=== PATIENT | female | born 1960 | race Caucasian/White ===

== ENCOUNTER 2016-12-28 14:07 | Inpatient (IN) | payer MEDICARE ==
[2016-12-28] VITALS (9 sets, daily range): BP systolic 150–238; BP diastolic 92–124; PULSE 69–96; RESP 12–20; TEMP 98.5; O2SAT 97–100
[~2016-12-28] VITALS: Ht 160 cm; Wt 47.6 kg
[~2016-12-28 14:07] MED LIST: 1-ME1LIQ PO; CLON-481 PO; LISI-363 PO
[2016-12-28] MEDS ORDERED: ONDANSETRON HCL 4 MG/2 ML VIAL IVP ONE (15:15)
[2016-12-28] MEDS ORDERED: SODIUM CHLORIDE 0.9% FLUSH 10 ML FLUSH IVF PRN (15:15)
[2016-12-28] MEDS ORDERED: METOCLOPRAMIDE HCL 10 MG/2 ML VIAL IVP ONE (15:15)
[2016-12-28] MEDS ORDERED: LABETALOL HCL 100 MG/20 ML VIAL IV PUSH ONE ×2 (15:45→17:30)
--- NOTE | 2016-12-28 15:45 | RADRPT ---
EXAM DATE/TIME: 12/28/2016 15:31 [facility] COMPARISON: No previous studies available for comparison. INDICATIONS : Visual changes, hypertension and headache. RADIATION DOSE: 56.35 CTDIvol (mGy) MEDICAL HISTORY : Hypertension. SURGICAL HISTORY : None. ENCOUNTER: Initial ACUITY: 1 day PAIN SCALE: 6/10 LOCATION: cranial TECHNIQUE: Multiple contiguous axial images were obtained of the head. Using automated exposure control and adj ustment of the mA and/or kV according to patient size, radiation dose was kept as low as reasonably a chievable to obtain optimal diagnostic quality images. FINDINGS: CEREBRUM: The ventricles are normal for age. No evidence of midline shift, mass lesion, hemorrhage or acute in farction. No extra-axial fluid collections are seen. POSTERIOR FOSSA: The cerebellum and brainstem are intact. The 4th ventricle is midline. The cerebellopontine angle i s unremarkable. EXTRACRANIAL: The visualized portion of the orbits is intact. There is a mucous retention cyst within right maxilla ry sinus. Nasal septal deviation to the left is noted. SKULL: The calvaria is intact. No evidence of skull fracture. CONCLUSION: No acute intracranial abnormality. Mucous retention cyst within the right maxillary s inus. Nasal septal deviation to the left. Pranav Segundo MD on December 28, 2016 at 15:41 Board Certified Radiologist. This report was verified electronically.
[2016-12-28 16:04] LABS: AUTOMATED NEUTROPHIL # 11.2 TH/MM3 (1.8-7.7); BASOPHIL # 0.1 TH/MM3 (0-0.2); BASOPHIL % 0.4 % (0.0-2.0); EOSINOPHIL % 0.2 % (0.0-4.0); HEMATOCRIT 45.7 % (35.0-46.0); HEMO FLAGS DIFF FINAL; LYMPH % 16.9 % (9.0-44.0); LYMPHOCYTE # 2.5 TH/MM3 (1.0-4.8); MEAN CORPUSCULAR HEMOGLOBIN 32.9 PG (27.0-34.0); MEAN CORPUSCULAR HGB CONC 34.3 % (32.0-36.0); MONO % 5.5 % (0.0-8.0); PLATELET COUNT 320 TH/MM3 (150-450); RED BLOOD COUNT 4.77 MIL/MM3 (4.00-5.30); RED CELL DISTRIBUTION WIDTH 13.9 % (11.6-17.2); WHITE BLOOD COUNT 14.6 TH/MM3 (4.0-11.0)
[2016-12-28 16:20] LABS: ANION GAP 7 MEQ/L (5-15); AST (GOT) 26 U/L (15-37); BLOOD UREA NITROGEN 9 MG/DL (7-18); CHLORIDE 108 MEQ/L (98-107); GLOMERULAR FILTRATION RATE 80 ML/MIN (>89); POTASSIUM 3.5 MEQ/L (3.5-5.1); SODIUM (NA) 142 MEQ/L (136-145)
[2016-12-28 16:21] LABS: APTT (PATIENT) 25.9 SEC (24.3-30.1); PROTHROMBIN TIME - PATIENT 10.7 SEC (9.8-11.6)
[2016-12-28 16:25] LABS: ALKALINE PHOSPHATASE 121 U/L (45-117); ALT (GPT) 34 U/L (10-53); CREATINE KINASE 220 U/L (26-192); TOTAL BILIRUBIN ADULT 0.2 MG/DL (0.2-1.0)
--- NOTE | 2016-12-28 16:36 | PD ---
HPI Chief Complaint: Hypertension Time Seen by Provider: 15:01 Travel History International Travel<30 days: No Contact w/Intl Traveler<30days: No Traveled to known affect area: No History of Present Illness HPI This is a 56-year-old female with history of hypertension, who presents today with points of headache and elevated blood pressure. The patient states she's been off her medications for several days. She states she normally takes clonidine 0.6 mg twice daily. She states her doctor recently decreased her dose from 0.6 2.3 twice a day. She also takes Norvasc 5 mg daily as well as lisinopril 20 mg daily. She denies any weakness of her extremity is. She denies any blurry vision. She denies any nausea vomiting diarrhea. PFSH Past Medical History Hypertension: Yes Tetanus Vaccination: > 5 Years Influenza Vaccination: No ?: Not Social History Alcohol Use: Yes (occasionally ) Tobacco Use: Yes Substance Use: No Allergies-Medications (Allergen,Severity, Reaction): Coded Allergies: No Known Allergies (Unverified , 04/20/16) Reported Meds & Prescriptions Reported Meds & Active Scripts Active Lisinopril 20 mg (Lisinopril) 20 Mg Tab 1 Tab PO BID Amlodipine Besylate 10 mg (Amlodipine Besylate) 10 Mg Tab 1 Tab PO DAILY Catapres 0.3 mg (Clonidine HCl) 0.3 Mg Tab 1 Tab PO BID Physical Exam Narrative GENERAL: Well developed well-nourished female in no acute respiratory distress. SKIN: Warm and dry. HEAD: Atraumatic. Normocephalic. EYES: Pupils equal and round. No scleral icterus. No injection or drainage. ENT: No nasal bleeding or discharge. Mucous membranes pink and moist. NECK: Trachea midline. Supple. The patient has puncture deras in her left lateral neck that are consistent with her reported IVD injection site. There is no evidence of cellulitis or infection. CARDIOVASCULAR: Regular rate and rhythm. No murmur appreciated. RESPIRATORY: No accessory muscle use. Clear to auscultation. Breath sounds equal bilaterally. GASTROINTESTINAL: Abdomen soft, non-tender, nondistended. MUSCULOSKELETAL: No obvious deformities. No clubbing. No cyanosis. No edema. NEUROLOGICAL: Awake and alert. No obvious cranial nerve deficits. Motor grossly within normal limits. Normal speech. PSYCHIATRIC: Appropriate mood and affect; insight and judgment normal. Data Data Last Documented VS Vital Signs Date Time Temp Pulse Resp B/P Pulse Ox O2 Delivery O2 Flow Rate FiO2 12/28/16 18:00 69 20 196/102 97 Room Air 12/28/16 14:08 98.5 Orders Electrocardiogram (12/28/16 ) Complete Blood Count With Diff (12/28/16 15:08) Comprehensive Metabolic Panel (12/28/16 15:08) Prothrombin Time / Inr (Pt) (12/28/16 15:08) Act Partial Throm Time (Ptt) (12/28/16 15:08) Ct Brain W/O Iv Contrast(Rout) (12/28/16 15:08) Ecg Monitoring (12/28/16 15:08) Iv Access Insert/Monitor (12/28/16 15:08) Oximetry (12/28/16 15:08) Sodium Chloride 0.9% Flush (Ns Flush) (12/28/16 15:15) Ondansetron Inj (Zofran Inj) (12/28/16 15:15) Metoclopramide Inj (Reglan Inj) (12/28/16 15:15) Ckmb (Isoenzyme) Profile (12/28/16 15:08) Troponin I (12/28/16 15:08) Labetalol Inj (Trandate Inj) (12/28/16 15:45) CKMB (12/28/16 15:10) CKMB% (12/28/16 15:10) Hydromorphone Pf Inj (Dilaudid Pf Inj) (12/28/16 17:15) Labetalol Inj (Trandate Inj) (12/28/16 17:30) Enalaprilat Inj (Vasotec Inj) (12/28/16 17:30) Nitroprusside Inj (Nipride Inj) (12/28/16 18:30) Chest, Single Ap (12/28/16 18:26) Admit Order (Ed Use Only) (12/28/16 19:03) Labs Laboratory Tests Test 12/28/16 15:10 White Blood Count 14.6 TH/MM3 Red Blood Count 4.77 MIL/MM3 Hemoglobin 15.7 GM/DL Hematocrit 45.7 % Mean Corpuscular Volume 96.0 FL Mean Corpuscular Hemoglobin 32.9 PG Mean Corpuscular Hemoglobin 34.3 % Concent Red Cell Distribution Width 13.9 % Platelet Count 320 TH/MM3 Mean Platelet Volume 9.0 FL Neutrophils (%) (Auto) 77.0 % Lymphocytes (%) (Auto) 16.9 % Monocytes (%) (Auto) 5.5 % Eosinophils (%) (Auto) 0.2 % Basophils (%) (Auto) 0.4 % Neutrophils # (Auto) 11.2 TH/MM3 Lymphocytes # (Auto) 2.5 TH/MM3 Monocytes # (Auto) 0.8 TH/MM3 Eosinophils # (Auto) 0.0 TH/MM3 Basophils # (Auto) 0.1 TH/MM3 CBC Comment DIFF FINAL Differential Comment Prothrombin Time 10.7 SEC Prothromb Time International 1.0 RATIO Ratio Activated Partial 25.9 SEC Thromboplast Time Sodium Level 142 MEQ/L Potassium Level 3.5 MEQ/L Chloride Level 108 MEQ/L Carbon Dioxide Level 27.0 MEQ/L Anion Gap 7 MEQ/L Blood Urea Nitrogen 9 MG/DL Creatinine 0.75 MG/DL Estimat Glomerular Filtration 80 ML/MIN Rate Random Glucose 114 MG/DL Calcium Level 9.1 MG/DL Total Bilirubin 0.2 MG/DL Aspartate Amino Transf 26 U/L (AST/SGOT) Alanine Aminotransferase 34 U/L (ALT/SGPT) Alkaline Phosphatase 121 U/L Total Creatine Kinase 220 U/L Creatine Kinase MB 6.1 NG/ML Creatine Kinase MB % 2.8 % Troponin I LESS THAN 0.02 NG/ML Total Protein 8.0 GM/DL Albumin 3.6 GM/DL MDM Medical Decision Making Medical Screen Exam Complete: Yes Emergency Medical Condition: Yes Interpretation(s) Last [address] 12/28/16 1508 Signed Impressions: Service Date/Time: Wednesday, December 28, 2016 15:31 - CONCLUSION: No acute intracranial abnormality. Mucous retention cyst within the right maxillary sinus. Nasal septal deviation to the left. Pranav Segundo MD Differential Diagnosis Hypertensive urgency versus hypertensive emergency versus uncontrolled hypertension Narrative Course This is a 56-year-old female with a history of hypertension who is recently moved down here from [facility] today with complaints of uncontrolled hypertension and headache. The patient has no focal neurologic signs. CT scan of the brain shows no evidence of acute intracranial been on these. The patient has been given 2 doses of IV Lopressor and 1 dose of IV Vasotec. The patient's blood pressure is still 190/110. She'll be started on a Cardene drip per Dr. Matos. There is a call out to the [facility] for admission for uncontrolled hypertension/apprehensive urgency. Diagnosis Primary Impression: Hypertensive urgency Aniket Rodriguez MD Dec 28, 2016 16:35
[2016-12-28 16:37] LABS: CKMB 6.1 NG/ML (0.5-3.6)
[2016-12-28] MEDS ORDERED: HYDROmorphone HCL PF 1 MG/ML VIAL IV PUSH ONE (17:15)
[2016-12-28] MEDS ORDERED: ENALAPRILAT 1.25 MG/ML VIAL IV PUSH ONE (17:30)
[2016-12-28] MEDS ORDERED: NITROPRUSSIDE INJ 50 MG in DEXTROSE 5% IN WATER INJ 250 ML IV ONE ×2 (18:30)
--- NOTE | 2016-12-28 19:02 | RADRPT ---
EXAM DATE/TIME: 12/28/2016 18:47 [facility] COMPARISON: No previous studies available for comparison. INDICATIONS : Uncontrolled hypertension. MEDICAL HISTORY : Hypertension. SURGICAL HISTORY : None. ENCOUNTER: Initial ACUITY: 1 day PAIN SCORE: 0/10 LOCATION: Bilateral chest FINDINGS: The lungs are clear without infiltrate, nodule, or mass. There is no appreciable pleural effusion fo r technique. Heart and mediastinum are unremarkable. CONCLUSION: No acute cardiopulmonary disease. Maisha Aguirre MD on December 28, 2016 at 19:00 Board Certified Radiologist. This report was verified electronically.
[2016-12-28] MEDS ORDERED: SODIUM CHLORIDE 0.9% FLUSH 10 ML FLUSH IV FLUSH PRN (19:30)
[2016-12-28] MEDS ORDERED: MISCELLANEOUS NURSING INFORMATION XX SCH (19:30)
[2016-12-28] MEDS ORDERED: RESP: ALBUTEROL 2.5 MG/IPRATROPIUM 0.5 MG NEB (PRN) INH (19:30)
[2016-12-28] MEDS ORDERED: ONDANSETRON HCL 4 MG/2 ML VIAL IV PRN (19:30)
[2016-12-28] MEDS ORDERED: CHLORHEXIDINE GLUCONATE 2 % 1 PACK (2 CLOTHS) TOP PRN (19:30)
[2016-12-28] MEDS ORDERED: METOCLOPRAMIDE HCL 10 MG/2 ML VIAL IV PRN (19:30)
--- NOTE | 2016-12-28 19:39 | HHI.HP ---
HPI Service Critical Care Medicine Primary Care Physician No Primary Care Physician Admission Diagnosis hypertensive urgency, Diagnosis: Travel History International Travel<30 Days: No Contact w/Intl Traveler <30 Da: No Traveled to Known Affected Are: No History of Present Illness 56-year-old female with a history of hypertension recently moved here from [place], she was on clonidine 0.6 twice a day. Patient wasn't able to establish primary care physician yet and she ran out of her blood pressure medications. She presents with uncontrolled hypertension. Review of Systems Constitutional: DENIES: Diaphoretic episodes, Fatigue, Fever, Weight gain, Weight loss, Chills, Dizziness, Change in appetite, Night Sweats Endocrine: DENIES: Abnorml menstrual pattern, Heat/cold intolerance, Polydipsia , Polyuria, Polyphagia Eyes: DENIES: Blurred vision, Diplopia, Eye inflammation, Eye pain, Vision loss , Photosensitivity, Double Vision Ears, nose, mouth, throat: DENIES: Tinnitus, Hearing loss, Vertigo, Nasal discharge, Oral lesions, Throat pain, Hoarseness, Ear Pain, Running Nose, Epistaxis, Sinus Pain, Toothache, Odynophagia Respiratory: DENIES: Apneas, Cough, Snoring, Wheezing, Hemoptysis, Sputum production, Shortness of breath Cardiovascular: DENIES: Chest pain, Palpitations, Syncope, Dyspnea on Exertion , PND, Lower Extremity Edema, Orthopnea, Claudication Gastrointestinal: COMPLAINS OF: Nausea, DENIES: Abdominal pain, Black stools, Bloody stools, Constipation, Diarrhea, Vomiting, Difficulty Swallowing, Anorexia Genitourinary: DENIES: Abnormal vaginal bleeding, Dysmenorrhea, Dyspareunia, Sexual dysfunction, Urinary frequency, Urinary incontinence, Urgency, Hematuria , Dysuria, Nocturia, Vaginal discharge Musculoskeletal: DENIES: Joint pain, Muscle aches, Stiffness, Joint Swelling, Back pain, Neck pain Integumentary: DENIES: Abnormal pigmentation, Pruritus, Rash, Nail changes, Breast masses, Breast skin changes, Nipple discharge Hematologic/lymphatic: DENIES: Bruising, Lymphadenopathy Immunologic/allergic: DENIES: Eczema, Urticaria Neurologic: COMPLAINS OF: Headache, DENIES: Abnormal gait, Localized weakness , Paresthesias, Seizures, Speech Problems, Tremor, Poor Balance Psychiatric: DENIES: Anxiety, Confusion, Mood changes, Depression, Hallucinations, Agitation, Suicidal Ideation, Homicidal Ideation, Delusions Past Family Social History Allergies: Coded Allergies: No Known Allergies (Unverified , 04/20/16) Past Medical History Hypertension Past Surgical History None Reported Medications Reported Meds & Active Scripts Active Lisinopril 20 mg (Lisinopril) 20 Mg Tab 1 Tab PO BID Amlodipine Besylate 10 mg (Amlodipine Besylate) 10 Mg Tab 1 Tab PO DAILY Catapres 0.3 mg (Clonidine HCl) 0.3 Mg Tab 1 Tab PO BID Active Ordered Medications Current Medications Medications (Trade) Dose Ordered Sig/Georgette Route PRN Reason Start Time Stop Time Status Last Admin Dose Admin Sodium Chloride (NS Flush) 2 ml UNSCH PRN IV FLUSH FLUSH AFTER USING IV ACCESS 12/28/16 19:30 Sodium Chloride (NS Flush) 2 ml BID IV FLUSH 12/28/16 21:00 Acetaminophen (Tylenol) 650 mg Q6H PRN PO PAIN 1-10 AND/OR FEVER >101F 12/28/16 19:30 12/28/16 20:36 Ondansetron HCl (Zofran Inj) 4 mg Q6H PRN IV NAUSEA OR VOMITING 12/28/16 19:30 Metoclopramide HCl (Reglan Inj) 10 mg Q6H PRN IV NAUSEA OR VOMITING 12/28/16 19:30 Docusate Sodium (Colace) 100 mg BID PO 12/28/16 21:00 12/28/16 20:59 Zolpidem Tartrate (Ambien) 5 mg HS PRN PO INSOMNIA 12/28/16 21:00 Miscellaneous Information 1 Q361D XX 12/28/16 19:30 12/28/16 19:57 Chlorhexidine Gluconate (Chlorhexidine 2% Cloth) 3 pack Taper DAILY@04 TOP 12/29/16 04:00 12/25/17 03:59 Chlorhexidine Gluconate 3 pack 3 pack UNSCH PRN TOP HYGIENIC CARE 12/28/16 19:30 Nicardipine HCl/ Sodium Chloride (Cardene Inj/NS 250 ml Inj) 260 ml @ 0 mls/hr TITRATE IV 12/28/16 21:00 12/28/16 21:54 Hydralazine HCl (Apresoline Inj) 20 mg Q4H PRN IV PUSH SBP>160, DBP>90 12/28/16 19:45 Clonidine (Catapres) 0.3 mg BID PO 12/28/16 21:00 12/28/16 21:03 Lisinopril (Prinivil) 20 mg BID PO 12/28/16 21:00 12/28/16 21:00 Labetalol HCl (Trandate) 200 mg Q12HR PO 12/28/16 21:00 12/28/16 22:48 Amlodipine Besylate (Norvasc) 10 mg DAILY PO 12/28/16 19:45 12/28/16 19:58 Family History Noncontributory Social History Positive for tobacco use Alcohol occasionally Negative illicit drug abuse, occasionally marijuana Physical Exam Vital Signs Vital Signs Date Time Temp Pulse Resp B/P Pulse Ox O2 Delivery O2 Flow Rate FiO2 12/28/16 18:00 69 20 196/102 97 Room Air 12/28/16 17:57 18 12/28/16 17:30 80 20 191/104 98 Room Air 12/28/16 17:00 70 20 197/115 99 Room Air 12/28/16 15:37 98 Room Air 12/28/16 15:30 75 20 177/101 99 Room Air 12/28/16 15:04 88 20 98 Room Air 12/28/16 14:08 98.5 96 20 238/124 99 Room Air Physical Exam GENERAL: Well-nourished, well-developed patient. SKIN: Warm and dry. HEAD: Normocephalic. EYES: No scleral icterus. No injection or drainage. NECK: Supple, trachea midline. No JVD or lymphadenopathy. CARDIOVASCULAR: Regular rate and rhythm without murmurs, gallops, or rubs. RESPIRATORY: Breath sounds equal bilaterally. No accessory muscle use. GASTROINTESTINAL: Abdomen soft, non-tender, nondistended. MUSCULOSKELETAL: No cyanosis, or edema. BACK: Nontender without obvious deformity. No CVA tenderness. EXTREMITIES: Nonfocal, no clubbing, no cyanosis, no edema Laboratory Laboratory Tests Test 12/28/16 15:10 White Blood Count 14.6 Red Blood Count 4.77 Hemoglobin 15.7 Hematocrit 45.7 Mean Corpuscular Volume 96.0 Mean Corpuscular Hemoglobin 32.9 Mean Corpuscular Hemoglobin 34.3 Concent Red Cell Distribution Width 13.9 Platelet Count 320 Mean Platelet Volume 9.0 Neutrophils (%) (Auto) 77.0 Lymphocytes (%) (Auto) 16.9 Monocytes (%) (Auto) 5.5 Eosinophils (%) (Auto) 0.2 Basophils (%) (Auto) 0.4 Neutrophils # (Auto) 11.2 Lymphocytes # (Auto) 2.5 Monocytes # (Auto) 0.8 Eosinophils # (Auto) 0.0 Basophils # (Auto) 0.1 CBC Comment DIFF FINAL Differential Comment Prothrombin Time 10.7 Prothromb Time International 1.0 Ratio Activated Partial 25.9 Thromboplast Time Sodium Level 142 Potassium Level 3.5 Chloride Level 108 Carbon Dioxide Level 27.0 Anion Gap 7 Blood Urea Nitrogen 9 Creatinine 0.75 Estimat Glomerular Filtration 80 Rate Random Glucose 114 Calcium Level 9.1 Total Bilirubin 0.2 Aspartate Amino Transf 26 (AST/SGOT) Alanine Aminotransferase 34 (ALT/SGPT) Alkaline Phosphatase 121 Total Creatine Kinase 220 Creatine Kinase MB 6.1 Creatine Kinase MB % 2.8 Troponin I LESS THAN 0.02 Total Protein 8.0 Albumin 3.6 Result Diagram: 12/28/16 1510 12/28/16 1510 Imaging Last 24 hours Impressions Chest X-Ray 12/28/16 1826 Signed Impressions: Service Date/Time: Wednesday, December 28, 2016 18:47 - CONCLUSION: No acute cardiopulmonary disease. Maisha Aguirre MD Head CT 12/28/16 1508 Signed Impressions: Service Date/Time: Wednesday, December 28, 2016 15:31 - CONCLUSION: No acute intracranial abnormality. Mucous retention cyst within the right maxillary sinus. Nasal septal deviation to the left. Pranav Segundo MD Assessment and Plan Assessment and Plan Hypertensive urgency - Cardene drip - Clonidine - Norvasc - Lisinopril - Labetalol Headaches - CT is negative - Due to uncontrolled hypertension - Tylenol as needed Tobacco use disorder - Counseling provided - Consider nicotine patch if symptoms of withdrawal DVT GI prophylaxis - Early aggressive mobilization - Heart healthy diet Critical Care: The total critical care time was 35 minutes. Time to perform other separately billable procedures was not included in the critical care time. Rudy Matos MD Dec 28, 2016 19:39
[2016-12-28] MEDS ORDERED: hydrALAZINE HCL 20 MG/ML VIAL IV PUSH PRN (19:45)
[2016-12-28] MEDS: SODIUM CHLORIDE 0.9% FLUSH 10 ML FLUSH IV FLUSH SCH (19:57)
[2016-12-28] MEDS: ACETAMINOPHEN 325 MG TAB PO PRN (20:36)
[2016-12-28] MEDS: DOCUSATE SODIUM 100 MG CAP PO SCH (20:59)
[2016-12-28] MEDS: LISINOPRIL 20 MG TAB PO SCH (21:00)
[2016-12-28] MEDS: cloNIDine HCL 0.3 MG TAB PO SCH (21:03)
[2016-12-28] MEDS: niCARdipine INJ 25 MG in SODIUM CHLOR 0.9% 250 ML INJ 250 ML IV SCH (21:54)
[2016-12-28 22:05] LABS: AMPHETAMINE, URINE NEG (NEG); BARBITURATES, URINE NEG (NEG); COCAINE, URINE NEG (NEG)
[2016-12-28] MEDS: LABETALOL HCL 200 MG TAB PO SCH (22:48)
[2016-12-29] VITALS (12 sets, daily range): BP systolic 102–179; BP diastolic 58–93; PULSE 62–98; RESP 16–24; TEMP 98.2–98.7; O2SAT 96–98
[2016-12-29] MEDS ORDERED: IBUPROFEN 600 MG TAB PO ONE (01:45)
[2016-12-29] MEDS: ACETAMINOPHEN 325 MG TAB PO PRN ×3 (02:44→17:05)
[2016-12-29] MEDS: ZOLPIDEM TARTRATE 5 MG TAB PO PRN ×2 (02:47→21:07)
[2016-12-29] MEDS: CHLORHEXIDINE GLUCONATE 2 % 1 PACK (2 CLOTHS) TOP SCH (03:36)
[2016-12-29] MEDS: niCARdipine INJ 25 MG in SODIUM CHLOR 0.9% 250 ML INJ 250 ML IV SCH ×2 (03:36→08:08)
[2016-12-29 04:19] LABS: AUTOMATED NEUTROPHIL # 10.8 TH/MM3 (1.8-7.7); BASOPHIL # 0.1 TH/MM3 (0-0.2); BASOPHIL % 0.5 % (0.0-2.0); EOSINOPHIL # 0.2 TH/MM3 (0-0.4); EOSINOPHIL % 1.3 % (0.0-4.0); HEMATOCRIT 45.8 % (35.0-46.0); HEMO FLAGS DIFF FINAL; LYMPH % 25.3 % (9.0-44.0); LYMPHOCYTE # 4.2 TH/MM3 (1.0-4.8); MEAN CELL VOLUME 95.8 FL (80.0-100.0); MEAN CORPUSCULAR HEMOGLOBIN 31.8 PG (27.0-34.0); MEAN CORPUSCULAR HGB CONC 33.2 % (32.0-36.0); MONO % 7.8 % (0.0-8.0); NEUT % 65.1 % (16.0-70.0); PLATELET COUNT 327 TH/MM3 (150-450); RED BLOOD COUNT 4.78 MIL/MM3 (4.00-5.30); RED CELL DISTRIBUTION WIDTH 13.9 % (11.6-17.2); WHITE BLOOD COUNT 16.7 TH/MM3 (4.0-11.0)
[2016-12-29 04:37] LABS: ALT (GPT) 33 U/L (10-53); ANION GAP 7 MEQ/L (5-15); AST (GOT) 20 U/L (15-37); BICARBONATE 30.6 MEQ/L (21.0-32.0); BLOOD UREA NITROGEN 9 MG/DL (7-18); CHLORIDE 105 MEQ/L (98-107); GLOMERULAR FILTRATION RATE 74 ML/MIN (>89); MAGNESIUM 1.9 MG/DL (1.5-2.5); POTASSIUM 3.9 MEQ/L (3.5-5.1); SODIUM (NA) 143 MEQ/L (136-145)
[2016-12-29 04:39] LABS: ALKALINE PHOSPHATASE 117 U/L (45-117); TOTAL BILIRUBIN ADULT 0.3 MG/DL (0.2-1.0)
[2016-12-29] MEDS: SODIUM CHLORIDE 0.9% FLUSH 10 ML FLUSH IV FLUSH SCH ×2 (07:49→21:00)
[2016-12-29] MEDS: DOCUSATE SODIUM 100 MG CAP PO SCH ×2 (08:07→21:00)
[2016-12-29] MEDS: LISINOPRIL 20 MG TAB PO SCH ×2 (08:07→21:08)
[2016-12-29] MEDS: LABETALOL HCL 200 MG TAB PO SCH ×2 (08:07→21:08)
[2016-12-29] MEDS: cloNIDine HCL 0.3 MG TAB PO SCH ×2 (08:07→21:08)
[2016-12-29] MEDS ORDERED: METHYL PO SCH (09:00)
[2016-12-29] MEDS: SODIUM CHLORID 0.9% 500 ML INJ 500 ML IV SCH ×2 (09:25→10:00)
--- NOTE | 2016-12-29 10:45 | HHI.PR ---
Subjective Remarks Follow-up hypertensive emergency/urgency 12/29/16-patient seen and examined; patient continued to complain of headaches. Currently hypotensive secondary to medication side effect. Receiving NS bolus 500 cc Objective Vitals Vital Signs Date Time Temp Pulse Resp B/P Pulse Ox O2 Delivery O2 Flow Rate FiO2 12/29/16 06:00 92 12/29/16 04:00 98 12/29/16 04:00 98.2 98 24 143/80 98 12/29/16 03:44 20 12/29/16 02:48 15 12/29/16 02:00 89 12/29/16 00:00 98.5 89 17 152/86 97 12/29/16 00:00 89 12/28/16 23:42 170/95 12/28/16 22:30 76 12/28/16 22:30 97 Room Air 12/28/16 22:30 98.5 80 16 150/100 100 12/28/16 20:03 75 12 203/92 97 12/28/16 18:00 69 20 196/102 97 Room Air 12/28/16 17:57 18 12/28/16 17:30 80 20 191/104 98 Room Air 12/28/16 17:00 70 20 197/115 99 Room Air 12/28/16 15:37 98 Room Air 12/28/16 15:30 75 20 177/101 99 Room Air 12/28/16 15:04 88 20 98 Room Air 12/28/16 14:08 98.5 96 20 238/124 99 Room Air I/O 12/28/16 12/28/16 12/28/16 12/29/16 12/29/16 12/29/16 07:00 15:00 23:00 07:00 15:00 23:00 Intake Total 731 ml Balance 731 ml Intake Oral 480 ml IV Total 251 ml # Voids 4 Result Diagram: 12/29/16 0332 12/29/16 0332 Imaging Last Impressions Chest X-Ray 12/28/16 1826 Signed Impressions: Service Date/Time: Wednesday, December 28, 2016 18:47 - CONCLUSION: No acute cardiopulmonary disease. Maisha Augirre MD Head CT 12/28/16 1508 Signed Impressions: Service Date/Time: Wednesday, December 28, 2016 15:31 - CONCLUSION: No acute intracranial abnormality. Mucous retention cyst within the right maxillary sinus. Nasal septal deviation to the left. Pranav Segundo MD Objective Remarks GENERAL: NAD SKIN: Warm and dry. HEAD: Normocephalic. EYES: No scleral icterus. No injection or drainage. NECK: Supple, trachea midline. No JVD or lymphadenopathy. CARDIOVASCULAR: Regular rate and rhythm without murmurs, gallops, or rubs. RESPIRATORY: Breath sounds equal bilaterally. No accessory muscle use. GASTROINTESTINAL: Abdomen soft, non-tender, nondistended. MUSCULOSKELETAL: No cyanosis, or edema. BACK: Nontender without obvious deformity. No CVA tenderness. A/P Problem List: (1) Hypertensive urgency ICD Code: I16.0 Status: Acute (2) Headache ICD Code: R51 Status: Acute (3) Benign hypertension ICD Code: I10 Status: Acute (4) Hypotension due to medication ICD Code: I95.2 Status: Acute Assessment and Plan 56-year-old female with Hypertensive urgency: Initially on Cardene drip despite oral antihypertensive medication including Norvasc 10 mg daily, Prinivil 20 mg twice a day, clonidine 0.3 mg twice a day and Trandate 200 mg twice a day. However now patient hypotensive Hypotension due to medication: Hold all oral hypertensive medications and discontinue Cardene.NS Bolus 500cc and Repeat x 1 Headaches: Head CT noted and review without intracranial abnormality, ibuprofen when necessary PSA: UDS positive for cannabinoid, patient counseled against Leukocytosis:may stress reactive; check UA and treat accordingly. Chest x-ray noted and review without any cardio pulmonary disease DVT prophylaxis : bilateral SCDs We will transfer to Med/Surg when BP improves Neil Cortes MD Dec 29, 2016 10:45
--- NOTE | 2016-12-29 11:05 | EKG ---
Date Performed: 12/28/2016 Time Performed: 14:30:51 PTAGE: 56 years EKG: Sinus rhythm WITH SINUS ARRHYTHMIA POSSIBLE LEFT ATRIAL ENLARGEMENT POSSIBLE LEFT VENTRICULAR HYPERTROPHY ABNORMA L ECG NO PREVIOUS TRACING DOCTOR: Wayne Camp Interpretating Date/Time 12/29/2016 11:03:35
[2016-12-29] MEDS: IBUPROFEN 600 MG TAB PO PRN ×2 (11:59→21:08)
[2016-12-29 20:19] LABS: BACTERIA, URINE RARE /hpf; BLOOD, URINE NEG (NEG); CALCIUM OXALATE CRYSTALS,URINE FEW /hpf; COMMENT (UR) CULTURE INDICATED; CULTURE IF INDICATED CULTURE INDICATED; GLUCOSE,URINE NEG (NEG); KETONE, URINE NEG (NEG); MUCUS URINE FEW /lpf (OCC); NITRITE,URINE POS (NEG); PH, URINE 5.5 (5.0-8.5); SQUAMOUS EPITHELIAL CELL URINE 7 /hpf (0-5); URINE COLOR YELLOW (YELLW/STRAW)
[2016-12-30 03:38] VITALS: BP 138/78; PULSE 66; RESP 16; TEMP 98.3; O2SAT 98
[2016-12-30] MEDS: CHLORHEXIDINE GLUCONATE 2 % 1 PACK (2 CLOTHS) TOP SCH (04:00)
[2016-12-30] MEDS: ACETAMINOPHEN 325 MG TAB PO PRN (04:07)
[2016-12-30] MEDS: LABETALOL HCL 200 MG TAB PO SCH (08:10)
[2016-12-30] MEDS: DOCUSATE SODIUM 100 MG CAP PO SCH (08:10)
[2016-12-30] MEDS: cloNIDine HCL 0.3 MG TAB PO SCH (08:10)
[2016-12-30] MEDS: SODIUM CHLORIDE 0.9% FLUSH 10 ML FLUSH IV FLUSH SCH (08:11)
[2016-12-30] MEDS ORDERED: LABE200T2 PO (08:31)
[2016-12-30] MEDS ORDERED: CIPR-9 PO (08:31)
[2016-12-30] MEDS ORDERED: CLON-481 PO (08:31)
--- NOTE | 2016-12-30 08:37 | HHI.PR ---
Subjective Remarks Follow-up hypertensive emergency/urgency 12/29/16-patient seen and examined; patient continued to complain of headaches. Currently hypotensive secondary to medication side effect. Receiving NS bolus 500 cc 12/30/16-patient seen and examined, BP stable, and denies any headaches. She was started on by mouth Cipro this morning. No acute event overnight Objective Vitals Vital Signs Date Time Temp Pulse Resp B/P Pulse Ox O2 Delivery O2 Flow Rate FiO2 12/30/16 03:38 98.3 66 16 138/78 98 12/29/16 23:18 98.6 74 18 124/63 97 12/29/16 21:20 98.7 69 18 179/93 97 12/29/16 20:00 78 12/29/16 20:00 Room Air 12/29/16 16:08 98.3 75 18 125/72 98 12/29/16 14:00 79 12/29/16 12:00 98.4 71 16 102/58 96 12/29/16 12:00 71 12/29/16 10:00 62 I/O 12/29/16 12/29/16 12/29/16 12/30/16 12/30/16 12/30/16 07:00 15:00 23:00 07:00 15:00 23:00 Intake Total 731 ml 1605 ml 240 ml 240 ml Output Total 0 ml Balance 731 ml 1605 ml 240 ml 240 ml Intake Oral 480 ml 420 ml 240 ml 240 ml IV Total 251 ml 1185 ml Output Urine Total 0 ml # Voids 4 2 4 1 # Bowel Movements 0 0 0 Result Diagram: 12/29/16 0332 12/29/16 0332 Imaging Last Impressions Chest X-Ray 12/28/16 1826 Signed Impressions: Service Date/Time: Wednesday, December 28, 2016 18:47 - CONCLUSION: No acute cardiopulmonary disease. Maisha Aguirre MD Head CT 12/28/16 1508 Signed Impressions: Service Date/Time: Wednesday, December 28, 2016 15:31 - CONCLUSION: No acute intracranial abnormality. Mucous retention cyst within the right maxillary sinus. Nasal septal deviation to the left. Pranav Segundo MD Objective Remarks GENERAL: NAD SKIN: Warm and dry. HEAD: Normocephalic. EYES: No scleral icterus. No injection or drainage. NECK: Supple, trachea midline. No JVD or lymphadenopathy. CARDIOVASCULAR: Regular rate and rhythm without murmurs, gallops, or rubs. RESPIRATORY: Breath sounds equal bilaterally. No accessory muscle use. GASTROINTESTINAL: Abdomen soft, non-tender, nondistended. MUSCULOSKELETAL: No cyanosis, or edema. BACK: Nontender without obvious deformity. No CVA tenderness. Procedures none A/P Problem List: (1) Hypertensive urgency ICD Code: I16.0 Status: Resolved (2) Headache ICD Code: R51 Status: Resolved (3) Benign hypertension ICD Code: I10 Status: Chronic (4) Hypotension due to medication ICD Code: I95.2 Status: Resolved (5) UTI (urinary tract infection) ICD Code: N39.0 Status: Acute Assessment and Plan 56-year-old female with Hypertensive urgency: Resolved s/p Cardene drip as well as oral antihypertensive medication including Norvasc 10 mg daily, Prinivil 20 mg twice a day, clonidine 0.3 mg twice a day and Trandate 200 mg twice a day. Hypotension due to medication: Resolved s/p NS Bolus 1L Hypertension: Now on Clonidine 0.3mg PO BID and Trandate 200mg BID Headaches: Head CT noted and review without intracranial abnormality, ibuprofen when necessary PSA: UDS positive for cannabinoid, patient counseled against UTI: Start Cipro 500mg BID DVT prophylaxis : bilateral SCDs Neil Cortes MD Dec 30, 2016 08:37
--- NOTE | 2016-12-30 08:38 | HHI.DS ---
Discharge Summary Admission Date Dec 28, 2016 at 19:05 Discharge Date: Dec 30, 2016 Admitting Diagnosis hypertensive urgency, (1) Hypertensive urgency ICD Code: I16.0 (2) Headache ICD Code: R51 (3) Benign hypertension ICD Code: I10 (4) Hypotension due to medication ICD Code: I95.2 (5) UTI (urinary tract infection) ICD Code: N39.0 Procedures none Brief History - From Admission 56-year-old female with a history of hypertension recently moved here from [place], she was on clonidine 0.6 twice a day. Patient wasn't able to establish primary care physician yet and she ran out of her blood pressure medications. She presents with uncontrolled hypertension. CBC/BMP: 12/29/16 0332 12/29/16 0332 Significant Findings Laboratory Tests Test 12/28/16 12/28/16 12/29/16 12/29/16 15:10 21:10 03:32 20:00 White Blood Count 14.6 TH/MM3 16.7 TH/MM3 (4.0-11.0) (4.0-11.0) Hemoglobin 15.7 GM/DL (11.6-15.3) Neutrophils (%) (Auto) 77.0 % (16.0-70.0) Neutrophils # (Auto) 11.2 TH/MM3 10.8 TH/MM3 (1.8-7.7) (1.8-7.7) Chloride Level 108 MEQ/L (98-107) Estimat Glomerular Filtration 80 ML/MIN (>89) 74 ML/MIN (>89) Rate Random Glucose 114 MG/DL (74-106) Alkaline Phosphatase 121 U/L (45-117) Total Creatine Kinase 220 U/L (26-192) Creatine Kinase MB 6.1 NG/ML (0.5-3.6) Troponin I LESS THAN 0.02 NG/ML (0.02-0.05) Urine Cannabinoids Screen POS (NEG) Monocytes # (Auto) 1.3 TH/MM3 (0-0.9) Urine Turbidity HAZY (CLEAR) Urine Nitrite POS (NEG) Urine Leukocyte Esterase MOD (NEG) Urine Calcium Oxalate Crystals FEW /hpf (NONE) Urine Bacteria RARE /hpf (NONE) Urine Mucus FEW /lpf (OCC) Imaging Last Impressions Chest X-Ray 12/28/16 1826 Signed Impressions: Service Date/Time: Wednesday, December 28, 2016 18:47 - CONCLUSION: No acute cardiopulmonary disease. Maisha Aguirre MD Head CT 12/28/16 1508 Signed Impressions: Service Date/Time: Wednesday, December 28, 2016 15:31 - CONCLUSION: No acute intracranial abnormality. Mucous retention cyst within the right maxillary sinus. Nasal septal deviation to the left. Pranav Segundo MD PE at Discharge GENERAL: NAD SKIN: Warm and dry. HEAD: Normocephalic. EYES: No scleral icterus. No injection or drainage. NECK: Supple, trachea midline. No JVD or lymphadenopathy. CARDIOVASCULAR: Regular rate and rhythm without murmurs, gallops, or rubs. RESPIRATORY: Breath sounds equal bilaterally. No accessory muscle use. GASTROINTESTINAL: Abdomen soft, non-tender, nondistended. MUSCULOSKELETAL: No cyanosis, or edema. BACK: Nontender without obvious deformity. No CVA tenderness. Hospital Course Hypertensive urgency: Resolved s/p Cardene drip as well as oral antihypertensive medication including Norvasc 10 mg daily, Prinivil 20 mg twice a day, clonidine 0.3 mg twice a day and Trandate 200 mg twice a day. Hypotension due to medication: Resolved s/p NS Bolus 1L Hypertension: Now on Clonidine 0.3mg PO BID and Trandate 200mg BID Headaches: Head CT noted and review without intracranial abnormality, ibuprofen when necessary PSA: UDS positive for cannabinoid, patient counseled against UTI: Start Cipro 500mg BID DVT prophylaxis : bilateral SCDs Pt Condition on Discharge: Stable Discharge Disposition: Discharge Home Discharge Time: <= 30 minutes Discharge Instructions DIET: Follow Instructions for: Heart Healthy Diet Activities you can perform: Regular-No Restrictions Follow up Referrals: PCP Follow-up - 1 Week New Medications: Ciprofloxacin (Cipro) 500 Mg Tab 500 MG PO Q12HR Infection #10 TAB Clonidine (Catapres) 0.3 Mg Tab 0.3 MG PO BID Blood Pressure Management #60 Ref 7 TAB Labetalol (Labetalol) 200 Mg Tab 200 MG PO Q12HR Blood Pressure Management #60 Ref 7 TAB Continued Medications: 1-Methyl 2-Pyrrolidone (Bulk) (1-Methyl 2-Pyrrolidinone) 10 Mg Tab 1 TAB PO DAILY #30 TAB Discontinued Medications: Lisinopril 20 mg (Lisinopril 20 mg) 20 Mg Tab 1 TAB PO BID #60 TAB Neil Cortes MD Dec 30, 2016 08:37
[2016-12-30] MEDS ORDERED: CIPROFLOXACIN 500 MG TAB PO SCH (09:00)
== END 2016-12-30 10:11 | disposition home or self-care (01) | DRG 305 ==
LOC: NEPE 14:07 → NEDA 19:05 → N03B 23:29 → N04B 12-29 14:50
PROVIDERS: ADMIT Hospitalist; ATTEND Hospitalist
DX: I16.0 Hypertensive urgency (principal); N39.0 Urinary tract infection, site not specified; F17.210 Nicotine dependence, cigarettes, uncomplicated; I95.2 Hypotension due to drugs; T46.1X5A Adverse effect of calcium-channel blockers, initial encounter; Y92.230 Patient room in hospital as the place of occurrence of the external cause; G47.00 Insomnia, unspecified; I10 Essential (primary) hypertension
CPT/HCPCS: 70450; 71010; 80053; 80307; 81001; 82550; 82552; 83735; 84100; 84484; 85025; 85610; 85730; 87077; 87086; 87186; 87641; 93005; 96365; 96375; 96376; J1170; J2405; J2765; J7040; J7050; J7060

== ENCOUNTER 2017-01-29 07:21 | Inpatient (IN) | payer OTHER, MEDICARE ==
[~2017-01-29] VITALS: Ht 160 cm; Wt 50.0 kg
[2017-01-29] VITALS (14 sets, daily range): BP systolic 146–237; BP diastolic 88–125; PULSE 59–84; RESP 18–20; TEMP 97.6–98.5; O2SAT 96–100
[~2017-01-29 07:21] MED LIST changes: +CIPR-9 PO; +LABE200T2 PO; -LISI-363 PO
[2017-01-29] MEDS ORDERED: CLON0.3T PO (07:39)
[2017-01-29] MEDS ORDERED: LABE200T2 PO (07:39)
[2017-01-29] MEDS ORDERED: METOPROLOL TARTRATE 25 MG TAB PO ONE (07:45)
[2017-01-29] MEDS ORDERED: SODIUM CHLORIDE 0.9% FLUSH 10 ML FLUSH IVF PRN (07:45)
--- NOTE | 2017-01-29 07:50 | PD ---
HPI Chief Complaint: Hypertension Time Seen by Provider: 07:41 Travel History International Travel<30 days: No Contact w/Intl Traveler<30days: No Traveled to known affect area: No History of Present Illness HPI 56-year-old female with history of hypertension, ran out of her blood pressure medications 2 days ago, and states that she is having substernal chest discomfort which she rates at a 3 out of 10, with radiation down the right arm, headaches, and elevated blood pressures. She states that she thinks her blood pressure is elevated testes are the same symptoms she usually gets. She does not yet have a primary care physician. She denies any nausea, vomiting, fevers , stiff neck, or any other symptoms. Modifying Factors: None Associated Signs & Symptoms: Chest discomfort, headaches, elevated blood pressure Risk Factors: History of hypertension, ran out of blood pressure meds PFSH Past Medical History Cardiovascular Problems: Yes Diabetes: No Hypertension: Yes Tetanus Vaccination: < 5 Years Influenza Vaccination: No ?: Not Menopausal: Yes Social History Alcohol Use: Yes (occasionally ) Tobacco Use: Yes Substance Use: No Allergies-Medications (Allergen,Severity, Reaction): Coded Allergies: No Known Allergies (Unverified , 01/29/17) Reported Meds & Prescriptions Reported Meds & Active Scripts Active Reported Labetalol (Labetalol HCl) 200 Mg Tab 200 Mg PO BID Clonidine (Clonidine HCl) 0.3 Mg Tab 0.3 Mg PO BID Review of Systems Except as stated in HPI: all other systems reviewed are Neg Physical Exam Narrative GENERAL: Middle age white female patient currently not in acute distress. Well- developed, awake, alert, oriented 3. SKIN: Focused skin assessment warm/dry. HEAD: Atraumatic. Normocephalic. EYES: Pupils equal and round. No scleral icterus. No injection or drainage. ENT: No nasal bleeding or discharge. Mucous membranes pink and moist. NECK: Trachea midline. No JVD. CARDIOVASCULAR: Regular rate and rhythm. No murmur appreciated. Pulses are present and equal bilaterally. RESPIRATORY: No accessory muscle use. Clear to auscultation. Breath sounds equal bilaterally. GASTROINTESTINAL: Abdomen soft, non-tender, nondistended. Hepatic and splenic margins not palpable. MUSCULOSKELETAL: No obvious deformities. No clubbing. No cyanosis. No edema. NEUROLOGICAL: Awake and alert. No obvious cranial nerve deficits. Motor grossly within normal limits. Normal speech. PSYCHIATRIC: Appropriate mood and affect; insight and judgment normal. Data Data Last Documented VS Vital Signs Date Time Temp Pulse Resp B/P Pulse Ox O2 Delivery O2 Flow Rate FiO2 01/29/17 10:04 59 18 154/105 99 Room Air 01/29/17 07:24 98.5 Orders Electrocardiogram (01/29/17 07:41) B-Type Natriuretic Peptide (01/29/17 07:41) Ckmb (Isoenzyme) Profile (01/29/17 07:41) Complete Blood Count With Diff (01/29/17 07:41) Comprehensive Metabolic Panel (01/29/17 07:41) Troponin I (01/29/17 07:41) Chest, Single Ap (01/29/17 07:41) Ecg Monitoring (01/29/17 07:41) Bilateral Bp Monitoring (01/29/17 07:41) Iv Access Insert/Monitor (01/29/17 07:41) Oximetry (01/29/17 07:41) Oxygen Administration (01/29/17 07:41) Sodium Chloride 0.9% Flush (Ns Flush) (01/29/17 07:45) Metoprolol Tartrate (Lopressor) (01/29/17 07:45) Aspirin (Aspirin) (01/29/17 08:30) Clonidine (Catapres) (01/29/17 08:30) Nitroglycerin 2% Oint (Nitroglycerin 2% (01/29/17 08:30) CKMB (01/29/17 07:50) CKMB% (01/29/17 07:50) Admit Order (Ed Use Only) (01/29/17 10:18) Labs Laboratory Tests Test 01/29/17 07:50 White Blood Count 18.4 TH/MM3 Red Blood Count 4.93 MIL/MM3 Hemoglobin 15.6 GM/DL Hematocrit 47.5 % Mean Corpuscular Volume 96.3 FL Mean Corpuscular Hemoglobin 31.6 PG Mean Corpuscular Hemoglobin 32.8 % Concent Red Cell Distribution Width 13.9 % Platelet Count 309 TH/MM3 Mean Platelet Volume 8.9 FL Neutrophils (%) (Auto) 71.0 % Lymphocytes (%) (Auto) 20.9 % Monocytes (%) (Auto) 7.3 % Eosinophils (%) (Auto) 0.2 % Basophils (%) (Auto) 0.6 % Neutrophils # (Auto) 13.1 TH/MM3 Lymphocytes # (Auto) 3.8 TH/MM3 Monocytes # (Auto) 1.3 TH/MM3 Eosinophils # (Auto) 0.0 TH/MM3 Basophils # (Auto) 0.1 TH/MM3 CBC Comment DIFF FINAL Differential Comment Sodium Level 142 MEQ/L Potassium Level 3.9 MEQ/L Chloride Level 106 MEQ/L Carbon Dioxide Level 27.3 MEQ/L Anion Gap 9 MEQ/L Blood Urea Nitrogen 10 MG/DL Creatinine 0.76 MG/DL Estimat Glomerular Filtration 78 ML/MIN Rate Random Glucose 92 MG/DL Calcium Level 9.4 MG/DL Total Bilirubin 0.5 MG/DL Aspartate Amino Transf 27 U/L (AST/SGOT) Alanine Aminotransferase 29 U/L (ALT/SGPT) Alkaline Phosphatase 126 U/L Total Creatine Kinase 112 U/L Creatine Kinase MB 1.6 NG/ML Troponin I LESS THAN 0.02 NG/ML B-Type Natriuretic Peptide 134 PG/ML Total Protein 8.6 GM/DL Albumin 4.0 GM/DL MDM Medical Decision Making Medical Screen Exam Complete: Yes Emergency Medical Condition: Yes Medical Record Reviewed: Yes Interpretation(s) EKG shows NSR, no ST elevation or depression, and no arrhythmias. No significant T-wave inversions. Laboratory Tests Test 01/29/17 07:50 White Blood Count 18.4 TH/MM3 (4.0-11.0) Hemoglobin 15.6 GM/DL (11.6-15.3) Hematocrit 47.5 % (35.0-46.0) Neutrophils (%) (Auto) 71.0 % (16.0-70.0) Neutrophils # (Auto) 13.1 TH/MM3 (1.8-7.7) Monocytes # (Auto) 1.3 TH/MM3 (0-0.9) Estimat Glomerular Filtration 78 ML/MIN (>89) Rate Alkaline Phosphatase 126 U/L (45-117) Troponin I LESS THAN 0.02 NG/ML (0.02-0.05) B-Type Natriuretic Peptide 134 PG/ML (0-100) Total Protein 8.6 GM/DL (6.4-8.2) Last 24 hours Impressions Chest X-Ray 01/29/17 0741 Signed Impressions: Service Date/Time: Sunday, January 29, 2017 07:55 - CONCLUSION: No acute disease. Zac Araiza MD Differential Diagnosis Chest discomfort, headaches, elevated blood pressurehypertensive urgency versus ACS versus CHF versus anxiety Narrative Course Blood pressures were fairly elevated in the ER and patient was given metoprolol without significant improvement. She was then given aspirin and nitroglycerin along with clotted 9 for her blood pressures. Her blood pressures came down slightly to a systolic of 190. At this point, lab work returns showing significant metabolic issues. Cardiac enzymes negative. EKG did not show any signs of acute ST-T changes. My plan would be to admit the patient for further treatment of chest pains and hypertensive urgency. The case was discussed with Dr. Castañeda for admission. Diagnosis Primary Impression: Hypertensive urgency Additional Impression: Chest pain Admitting Information Admitting Physician Requests: it Rika Morillo MD Jan 29, 2017 07:50
--- NOTE | 2017-01-29 08:14 | RADRPT ---
EXAM DATE/TIME: 01/29/2017 07:55 [facility] COMPARISON: CHEST SINGLE AP, December 28, 2016, 18:47. INDICATIONS : Chest pain, shortness of breath, and elevated blood pressure. MEDICAL HISTORY : Hypertension. SURGICAL HISTORY : None. ENCOUNTER: Initial ACUITY: 2 days PAIN SCORE: 3/10 LOCATION: Bilateral chest FINDINGS: A single view of the chest demonstrates the lungs to be symmetrically aerated without evidence of mas s, infiltrate or effusion. The cardiomediastinal contours are unremarkable. Osseous structures are intact. CONCLUSION: No acute disease. Zac Araiza MD on January 29, 2017 at 8:11 Board Certified Radiologist. This report was verified electronically.
[2017-01-29] MEDS ORDERED: NITROGLYCERIN 2% OINT 1 GM PACKET TOPICAL ONE (08:30)
[2017-01-29] MEDS ORDERED: cloNIDine HCL 0.2 MG TAB PO ONE (08:30)
[2017-01-29] MEDS ORDERED: ASPIRIN 325 MG TAB PO ONE (08:30)
[2017-01-29 08:56] LABS: AUTOMATED NEUTROPHIL # 13.1 TH/MM3 (1.8-7.7); BASOPHIL # 0.1 TH/MM3 (0-0.2); BASOPHIL % 0.6 % (0.0-2.0); EOSINOPHIL % 0.2 % (0.0-4.0); HEMATOCRIT 47.5 % (35.0-46.0); HEMO FLAGS DIFF FINAL; LYMPH % 20.9 % (9.0-44.0); LYMPHOCYTE # 3.8 TH/MM3 (1.0-4.8); MEAN CELL VOLUME 96.3 FL (80.0-100.0); MEAN CORPUSCULAR HEMOGLOBIN 31.6 PG (27.0-34.0); MEAN CORPUSCULAR HGB CONC 32.8 % (32.0-36.0); MONO % 7.3 % (0.0-8.0); PLATELET COUNT 309 TH/MM3 (150-450); RED BLOOD COUNT 4.93 MIL/MM3 (4.00-5.30); RED CELL DISTRIBUTION WIDTH 13.9 % (11.6-17.2); WHITE BLOOD COUNT 18.4 TH/MM3 (4.0-11.0)
[2017-01-29 09:28] LABS: ALKALINE PHOSPHATASE 126 U/L (45-117); ALT (GPT) 29 U/L (10-53); ANION GAP 9 MEQ/L (5-15); BICARBONATE 27.3 MEQ/L (21.0-32.0); BLOOD UREA NITROGEN 10 MG/DL (7-18); CHLORIDE 106 MEQ/L (98-107); CREATINE KINASE 112 U/L (26-192); GLOMERULAR FILTRATION RATE 78 ML/MIN (>89); SODIUM (NA) 142 MEQ/L (136-145); TOTAL BILIRUBIN ADULT 0.5 MG/DL (0.2-1.0)
[2017-01-29 09:31] LABS: AST (GOT) 27 U/L (15-37); POTASSIUM 3.9 MEQ/L (3.5-5.1)
[2017-01-29 09:44] LABS: CKMB 1.6 NG/ML (0.5-3.6)
[2017-01-29] MEDS ORDERED: NALOXONE HCL 0.4 MG/ML AMP IV PRN (11:15)
[2017-01-29] MEDS ORDERED: ENALAPRILAT 1.25 MG/ML VIAL IV PUSH PRN (12:00)
[2017-01-29] MEDS ORDERED: ONDANSETRON HCL 4 MG/2 ML VIAL IVP PRN (12:00)
[2017-01-29] MEDS: LABETALOL HCL 100 MG TAB PO ONE ×2 (12:27→12:45)
[2017-01-29] MEDS: ENOXAPARIN SODIUM 40 MG/0.4 ML SYRINGE SQ SCH (12:27)
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
--- NOTE | 2017-01-29 13:41 | EKG ---
Date Performed: 01/29/2017 Time Performed: 07:57:51 PTAGE: 56 years EKG: Sinus rhythm POSSIBLE LEFT ATRIAL ENLARGEMENT POSSIBLE LEFT VENTRICULAR HYPERTROPHY ABNORMAL ECG Compared to prio r tracing no significant change PREVIOUS TRACING : 12/28/2016 14.30 DOCTOR: Gage Okeefe Interpretating Date/Time 01/29/2017 13:37:02
[2017-01-29] MEDS: ACETAMINOPHEN 325 MG TAB PO PRN (17:26)
[2017-01-29] MEDS: cloNIDine HCL 0.3 MG TAB PO SCH (19:51)
[2017-01-29] MEDS: LABETALOL HCL 200 MG TAB PO SCH (19:51)
[2017-01-29] MEDS: SODIUM CHLORIDE 0.9% FLUSH 10 ML FLUSH IV FLUSH PRN ×2 (19:52→22:13)
[2017-01-29] MEDS: SODIUM CHLORIDE 0.9% FLUSH 10 ML FLUSH IV FLUSH SCH (19:52)
[2017-01-29] MEDS ORDERED: MORPHINE SULFATE 4 MG/ML INJ IV PUSH ONE (21:30)
[2017-01-30] VITALS (9 sets, daily range): BP systolic 79–129; BP diastolic 47–85; PULSE 60–86; RESP 16–18; TEMP 97.9–98.2; O2SAT 96–99
--- NOTE | 2017-01-30 07:37 | HHI.PR ---
Subjective Remarks resting comfortably with no distress. no chest pain or sob today. BP is better today. Objective Vitals Vital Signs Date Time Temp Pulse Resp B/P Pulse Ox O2 Delivery O2 Flow Rate FiO2 01/30/17 03:22 97.9 63 16 124/80 96 01/29/17 23:43 16 01/29/17 22:51 61 01/29/17 22:45 98.0 68 18 162/95 96 01/29/17 21:12 190/100 01/29/17 19:32 98.2 64 18 187/108 97 01/29/17 18:26 16 01/29/17 17:30 97.6 76 20 155/96 96 01/29/17 15:56 63 18 146/88 99 Room Air 01/29/17 14:03 67 18 163/97 100 Room Air 01/29/17 12:26 84 18 175/115 98 Room Air 01/29/17 10:45 59 18 153/102 99 Room Air 01/29/17 10:04 59 18 154/105 99 Room Air 01/29/17 08:41 67 18 217/119 99 Room Air 01/29/17 08:02 100 Room Air 01/29/17 08:02 18 100 Room Air 01/29/17 07:39 65 18 237/125 100 Room Air 01/29/17 07:39 70 18 100 Room Air Result Diagram: 01/29/17 0750 01/29/17 0750 Imaging Last Impressions Chest X-Ray 01/29/17 0741 Signed Impressions: Service Date/Time: Sunday, January 29, 2017 07:55 - CONCLUSION: No acute disease. Zac Araiza MD Objective Remarks GENERAL: This is a well-nourished, well-developed patient, in no apparent distress. CARDIOVASCULAR: Regular rate and regular rhythm without murmurs, gallops, or rubs. RESPIRATORY: Clear to auscultation. Breath sounds equal bilaterally. No wheezes , rales, or rhonchi. GASTROINTESTINAL: Abdomen soft, non-tender, nondistended. Normal, active bowel sounds MUSCULOSKELETAL: Extremities without clubbing, cyanosis, or edema. NEURO: Alert & Oriented x4 to person, place, time, situation. Moves all ext x4 Procedures none Medications and IVs Current Medications Sodium Chloride (NS Flush) 2 ml UNSCH PRN IVF FLUSH AFTER USING IV ACCESS; Start 01/29/17 at 07:45; Stop 01/29/17 at 11:20; Status DC Metoprolol Tartrate (Lopressor) 25 mg ONCE ONCE PO Last administered on 08:03; Start 01/29/17 at 07:45; Stop 01/29/17 at 07:46; Status DC Aspirin (Aspirin) 325 mg ONCE ONCE PO Last administered on 01/29/17 08:44; Start 01/29/17 at 08:30; Stop 01/29/17 at 08:31; Status DC Nitroglycerin (Nitroglycerin 2% Oint) 1 inch ONCE ONCE TOPICAL Last administered on 01/29/17 08:44; Start 01/29/17 at 08:30; Stop 01/29/17 at 08:31 ; Status DC Clonidine (Catapres) 0.2 mg ONCE ONCE PO Last administered on 01/29/17 08:44 ; Start 01/29/17 at 08:30; Stop 01/29/17 at 08:31; Status DC Sodium Chloride (NS Flush) 2 ml UNSCH PRN IV FLUSH FLUSH AFTER USING IV ACCESS Last administered on 01/29/17 22:13; Start 01/29/17 at 11:15 Sodium Chloride (NS Flush) 2 ml BID IV FLUSH Last administered on 01/29/17 19: 52; Start 01/29/17 at 21:00 Acetaminophen (Tylenol) 650 mg Q4H PRN PO TEMP > 100.4 Last administered on 17:26; Start 01/29/17 at 12:00 Ondansetron HCl (Zofran Inj) 4 mg Q6H PRN IVP NAUSEA OR VOMITING; Start at 12:00 Enoxaparin Sodium (Lovenox Inj) 40 mg Q24H SQ Last administered on 01/29/17 12 :27; Start 01/29/17 at 12:00 Naloxone HCl (Narcan Inj) 0.4 mg UNSCH PRN IV SEE LABEL COMMENTS; Start at 11:15 Clonidine (Catapres) 0.3 mg BID PO Last administered on 01/29/17 19:51; Start 01/29/17 at 21:00 Labetalol HCl (Trandate) 200 mg BID PO Last administered on 01/29/17 19:51; Start 01/29/17 at 21:00 Labetalol HCl (Trandate) 100 mg ONCE ONCE PO Last administered on 01/29/17 12 :45; Start 01/29/17 at 12:00; Stop 01/29/17 at 12:01; Status DC Enalaprilat (Vasotec Inj) 1.25 mg Q6H PRN IV PUSH SBP>160, DBP>90 Last administered on 01/29/17 22:13; Start 01/29/17 at 12:00 Morphine Sulfate (Morphine Inj) 2 mg ONCE ONCE IV PUSH Last administered on 22:13; Start 01/29/17 at 21:30; Stop 01/29/17 at 21:31; Status DC A/P Assessment and Plan A/P (1) Hypertensive urgency ICD Code: I16.0 Status: Acute Plan: Improving. PRN Clonidine Home clonidine resumed PRN Enalapril Resume home Labetalol dosing Follow BP will continue to monitor and adjust the regimen as needed. (2) Chest pain-resolved ICD Code: R07.9 Status: Acute Plan: Follow on telemetry troponin trend negative Etiology is most likely related to hypertensive urgency (3) Nicotine dependence ICD Code: F17.200 Status: Chronic Plan: Patient declines a nicotine patch (4)- leukocytosis- likely reactive- afebrile- will monitor. Discharge Planning dc home tomorrow if BP remains stable. Katelyn Hood MD Jan 30, 2017 07:37
[2017-01-30 07:53] LABS: AUTOMATED NEUTROPHIL # 7.5 TH/MM3 (1.8-7.7); BASOPHIL # 0.1 TH/MM3 (0-0.2); BASOPHIL % 0.7 % (0.0-2.0); EOSINOPHIL # 0.1 TH/MM3 (0-0.4); EOSINOPHIL % 0.8 % (0.0-4.0); HEMATOCRIT 43.1 % (35.0-46.0); HEMO FLAGS DIFF FINAL; LYMPH % 32.4 % (9.0-44.0); LYMPHOCYTE # 4.3 TH/MM3 (1.0-4.8); MEAN CELL VOLUME 95.8 FL (80.0-100.0); MEAN CORPUSCULAR HEMOGLOBIN 31.9 PG (27.0-34.0); MEAN CORPUSCULAR HGB CONC 33.4 % (32.0-36.0); MONO % 9.8 % (0.0-8.0); NEUT % 56.3 % (16.0-70.0); PLATELET COUNT 269 TH/MM3 (150-450); RED CELL DISTRIBUTION WIDTH 13.7 % (11.6-17.2); WHITE BLOOD COUNT 13.3 TH/MM3 (4.0-11.0)
[2017-01-30 08:51] LABS: ALKALINE PHOSPHATASE 91 U/L (45-117); ALT (GPT) 22 U/L (10-53); ANION GAP 8 MEQ/L (5-15); AST (GOT) 17 U/L (15-37); BICARBONATE 26.3 MEQ/L (21.0-32.0); BLOOD UREA NITROGEN 19 MG/DL (7-18); CHLORIDE 108 MEQ/L (98-107); GLOMERULAR FILTRATION RATE 86 ML/MIN (>89); POTASSIUM 3.7 MEQ/L (3.5-5.1); SODIUM (NA) 142 MEQ/L (136-145); TOTAL BILIRUBIN ADULT 0.5 MG/DL (0.2-1.0)
[2017-01-30] MEDS: cloNIDine HCL 0.3 MG TAB PO SCH (10:03)
[2017-01-30] MEDS: LABETALOL HCL 200 MG TAB PO SCH (10:03)
[2017-01-30] MEDS: SODIUM CHLORIDE 0.9% FLUSH 10 ML FLUSH IV FLUSH SCH ×2 (10:03→20:09)
[2017-01-30] MEDS ORDERED: LABE200T2 PO (12:29)
[2017-01-30] MEDS ORDERED: SODIUM CHLOR 0.9% 250 ML INJ 250 ML IV ONE ×3 (14:00→17:30)
[2017-01-30] MEDS: SODIUM CHLORIDE 0.9% FLUSH 10 ML FLUSH IV FLUSH PRN (14:04)
[2017-01-30] MEDS: ENOXAPARIN SODIUM 40 MG/0.4 ML SYRINGE SQ SCH (14:45)
[2017-01-30] MEDS: LABETALOL HCL 100 MG TAB PO SCH (20:09)
[2017-01-30] MEDS: ACETAMINOPHEN 325 MG TAB PO PRN (22:25)
[2017-01-31 04:13] VITALS: BP 130/82; PULSE 60; RESP 20; TEMP 98.5; O2SAT 97
[2017-01-31 07:26] VITALS: BP 142/79; PULSE 73; RESP 18; TEMP 97.8; O2SAT 97
[2017-01-31] MEDS: SODIUM CHLORIDE 0.9% FLUSH 10 ML FLUSH IV FLUSH SCH (09:03)
[2017-01-31] MEDS: LABETALOL HCL 100 MG TAB PO SCH (09:03)
--- NOTE | 2017-01-31 09:06 | HHI.PR ---
Subjective Remarks resting comfortably with no distress. no chest pain or sob or dizziness. d/w the RN. Objective Vitals Vital Signs Date Time Temp Pulse Resp B/P Pulse Ox O2 Delivery O2 Flow Rate FiO2 01/31/17 07:26 97.8 73 18 142/79 97 01/31/17 04:13 98.5 60 20 130/82 97 01/30/17 23:27 16 01/30/17 22:18 98.0 68 18 123/74 96 01/30/17 21:12 64 01/30/17 19:55 97.9 70 18 107/58 99 01/30/17 18:51 100/72 01/30/17 15:27 80/50 01/30/17 13:00 79/47 01/30/17 12:00 98.2 74 18 84/49 99 I/O 01/30/17 01/30/17 01/30/17 01/31/17 01/31/17 01/31/17 07:00 15:00 23:00 07:00 15:00 23:00 Intake Total 600 ml Balance 600 ml Intake Oral 600 ml # Voids 2 2 Result Diagram: 01/30/1730 01/30/17 0630 Imaging Last Impressions Chest X-Ray 01/29/17 0741 Signed Impressions: Service Date/Time: Sunday, January 29, 2017 07:55 - CONCLUSION: No acute disease. Zac Araiza MD Objective Remarks GENERAL: This is a well-nourished, well-developed patient, in no apparent distress. CARDIOVASCULAR: Regular rate and regular rhythm without murmurs, gallops, or rubs. RESPIRATORY: Clear to auscultation. Breath sounds equal bilaterally. No wheezes , rales, or rhonchi. GASTROINTESTINAL: Abdomen soft, non-tender, nondistended. Normal, active bowel sounds MUSCULOSKELETAL: Extremities without clubbing, cyanosis, or edema. NEURO: Alert & Oriented x4 to person, place, time, situation. Moves all ext x4 Procedures none Medications and IVs Current Medications Sodium Chloride (NS Flush) 2 ml UNSCH PRN IVF FLUSH AFTER USING IV ACCESS; Start 01/29/17 at 07:45; Stop 01/29/17 at 11:20; Status DC Metoprolol Tartrate (Lopressor) 25 mg ONCE ONCE PO Last administered on 08:03; Start 01/29/17 at 07:45; Stop 01/29/17 at 07:46; Status DC Aspirin (Aspirin) 325 mg ONCE ONCE PO Last administered on 01/29/17 08:44; Start 01/29/17 at 08:30; Stop 01/29/17 at 08:31; Status DC Nitroglycerin (Nitroglycerin 2% Oint) 1 inch ONCE ONCE TOPICAL Last administered on 01/29/17 08:44; Start 01/29/17 at 08:30; Stop 01/29/17 at 08:31 ; Status DC Clonidine (Catapres) 0.2 mg ONCE ONCE PO Last administered on 01/29/17 08:44 ; Start 01/29/17 at 08:30; Stop 01/29/17 at 08:31; Status DC Sodium Chloride (NS Flush) 2 ml UNSCH PRN IV FLUSH FLUSH AFTER USING IV ACCESS Last administered on 01/30/17 14:04; Start 01/29/17 at 11:15 Sodium Chloride (NS Flush) 2 ml BID IV FLUSH Last administered on 01/30/17 10: 03; Start 01/29/17 at 21:00 Acetaminophen (Tylenol) 650 mg Q4H PRN PO TEMP > 100.4 Last administered on 22:25; Start 01/29/17 at 12:00 Ondansetron HCl (Zofran Inj) 4 mg Q6H PRN IVP NAUSEA OR VOMITING; Start at 12:00 Enoxaparin Sodium (Lovenox Inj) 40 mg Q24H SQ Last administered on 01/30/17 14 :45; Start 01/29/17 at 12:00 Naloxone HCl (Narcan Inj) 0.4 mg UNSCH PRN IV SEE LABEL COMMENTS; Start at 11:15 Clonidine (Catapres) 0.3 mg BID PO Last administered on 01/30/17 10:03; Start 01/29/17 at 21:00; Status Hold Labetalol HCl (Trandate) 200 mg BID PO Last administered on 01/30/17 10:03; Start 01/29/17 at 21:00; Stop 01/30/17 at 13:33; Status DC Labetalol HCl (Trandate) 100 mg ONCE ONCE PO Last administered on 01/29/17 12 :45; Start 01/29/17 at 12:00; Stop 01/29/17 at 12:01; Status DC Enalaprilat (Vasotec Inj) 1.25 mg Q6H PRN IV PUSH SBP>160, DBP>90 Last administered on 01/29/17 22:13; Start 01/29/17 at 12:00 Morphine Sulfate 2 mg 2 mg ONCE ONCE IV PUSH Last administered on 01/29/17 22 :13; Start 01/29/17 at 21:30; Stop 01/29/17 at 21:31; Status DC Sodium Chloride (NS 250 ml Inj) 250 ml @ 250 mls/hr BOLUS ONCE IV Last administered on 01/30/17 14:04; Start 01/30/17 at 14:00; Stop 01/30/17 at 14:59 ; Status DC Labetalol HCl 100 mg 100 mg BID PO ; Start 01/30/17 at 21:00 Sodium Chloride 250 ml @ 0 mls/hr BOLUS ONCE IV ; Start 01/30/17 at 17:30; Stop 01/30/17 at 17:31; Status Cancel Sodium Chloride (NS 250 ml Inj) 250 ml @ 0 mls/hr BOLUS ONCE IV Last administered on 01/30/17 17:28; Start 01/30/17 at 17:30; Stop 01/30/17 at 17:31 ; Status DC A/P Assessment and Plan A/P (1) Hypertensive urgency-improved ICD Code: I16.0 Status: Acute resumed labetalol clonidine was held due to low BP readings continue to monitor. (2) Chest pain-resolved ICD Code: R07.9 Status: Acute Plan: Follow on telemetry troponin trend negative Etiology is most likely related to hypertensive urgency (3) Nicotine dependence ICD Code: F17.200 Status: Chronic Plan: Patient declines a nicotine patch (4)- leukocytosis- likely reactive- afebrile- improved. Discharge Planning dc home later this afternoon if BP remains stable. f/u; pcp upon discharge. d/w the patient and JUAN C. Katelyn Hood MD Jan 31, 2017 09:06
[2017-01-31 11:18] VITALS: BP 136/86; PULSE 64; RESP 20; TEMP 99.2; O2SAT 94
[2017-01-31 11:55] VITALS: PULSE 57
[2017-01-31] MEDS: ENOXAPARIN SODIUM 40 MG/0.4 ML SYRINGE SQ SCH (12:00)
[2017-01-31] MEDS ORDERED: LABE100T2 PO (12:18)
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
[2017-01-31 13:02] VITALS: BP 162/99; PULSE 71; RESP 20; O2SAT 96
== END 2017-01-31 14:29 | disposition home or self-care (01) | DRG 305 ==
LOC: NEPE 07:21 → NEDA 10:20 → OBSVTOIN 11:07 → NEPFCDU 16:39
PROVIDERS: ADMIT Internal Medicine; ATTEND Internal Medicine
DX: I16.0 Hypertensive urgency (principal); D72.829 Elevated white blood cell count, unspecified; R07.89 Other chest pain; F17.210 Nicotine dependence, cigarettes, uncomplicated; Z91.410 Personal history of adult physical and sexual abuse
CPT/HCPCS: 71010; 80053; 82550; 82552; 83880; 84484; 85025; 93005; J1650; J2270; J7050